=== PATIENT | male | born 1985 ===

== ENCOUNTER 2019-08-26 08:26 | Inpatient (IN) | payer BC, SELFPAY ==
[2019-08-26] MEDS ORDERED: Zolpidem Tartrate 5 MG TAB PO PRN (08:55)
[2019-08-26] MEDS ORDERED: Oxybutynin 5 MG TAB PO PRN (08:55)
[2019-08-26] MEDS ORDERED: HYDROcodone/Acetaminophen 10/325 mg Tablet PO PRN (08:55)
[2019-08-26] MEDS ORDERED: diphenhydrAMINE 50 MG/ML VIAL IVP PRN (08:55)
[2019-08-26] MEDS ORDERED: Insulin Regular 300 UNITS/3 ML VIAL SC PRN (09:13)
[2019-08-26] MEDS ORDERED: Dextrose 5% in Water 1,000 ML IV PRN (09:13)
[2019-08-26] MEDS ORDERED: Dextrose 50% Abboject 50 ML SYRINGE SLOW IVP PRN (09:13)
[2019-08-26 14:46] VITALS: BMI 43.7
--- NOTE | 2019-08-26 18:39 | PRG ---
DATE OF SERVICE: 08/26/2019 SUBJECTIVE: No issues overnight. The patient reports that his urine is clearing, darkish; over the last 24 hours , it has been cranberry color. He denies fevers, nausea, vomiting, dysuria, suprapubic pain. The left flank pain that he had on admission is completely gone at this point. He is having some right-sided flank discomfort. OBJECTIVE: VITAL SIGNS: Afebrile, vitals stable. Good urine output. GENERAL: In no acute distress, conversant. CHEST: Breathing unlabored, symmetric chest expansion. HEART: Regular rate and rhythm. ABDOMEN: Soft, nontender, and obese. Minimal right-sided flank tenderness mostly over the small incision, which is intact with dressing. No suprapubic tenderness. EXTREMITIES: Without clubbing, cyanosis, or edema. SKIN: Warm and dry. LABORATORY DATA: Creatinine 1.0. ASSESSMENT AND PLAN: 1. Postoperative day #3 failed PCNL due to improperly placed nephroureteral stent, postoperative day #5 left ureteroscopy with laser and stent placement. 2. The patient and I discussed his options at this time and have decided to proceed to the operating room tomorrow for intraoperative percutaneous access on the right side with PCNL to follow. I explained his procedure in detail including the expected postoperative course and the risks including bleeding, infection possibly sepsis, pain, inability to access to clear the stone, collateral damage during access including injury to blood vessels, renal pelvis, intestines, liver, lungs. He does understand that he may require a second-look procedure possibly on Monday. I also intend to remove the left ureteral stent intraoperatively tomorrow. All of his questions were answered and he is in agreement. Job ID: [id number] [facility]
[2019-08-26] MEDS: Sodium Chloride 0.9% 1,000 ML IV SCH (20:24)
[2019-08-26] MEDS: Docusate 100 MG CAP PO SCH (20:28)
[2019-08-27] MEDS: Morphine 4 MG/ML VIAL SLOW IVP PRN ×2 (00:04→16:33)
[2019-08-27] MEDS: Sodium Chloride 0.9% 1,000 ML IV SCH ×3 (00:06→17:58)
[2019-08-27 04:38] LABS: Anion Gap 13 mmol/L (10-20); BUN (Urea Nitrogen) 13 mg/dL (8.9-20.6); Calc. Creatinine Clearance 285 mL/min (70-130); Calcium 9.1 mg/dL (7.8-10.44); Carbon Dioxide 20 mmol/L (22-29); Chloride 111 mmol/L (98-107); Estimated GFR-MDRD Greater than 90; Glucose 97 mg/dL (70-105); Potassium 4.2 mmol/L (3.5-5.1); Sodium 140 mmol/L (136-145)
[2019-08-27 04:40] LABS: #Eosinphils 0.4 thou/uL (0.0-0.7); #Lymphocytes 2.7 thou/uL (1.20-3.40); #Monocytes 0.5 thou/uL (0.11-0.59); #Neutrophils 4.5 thou/uL (1.40-6.50); %Basophils 0.5 % (0.0-1.0); %Eosinophils 4.9 % (0.0-10.0); %Lymphocytes 32.8 % (21.0-51.0); %Monocytes 6.4 % (0.0-10.0); %Neutrophils 55.4 % (42.0-75.0); Hemoglobin 12.1 g/dL (14.0-18.0); Mean Corpuscular HGB CONC 34.9 g/dL (32.0-36.0); Mean Corpuscular Hemoglobin 31.9 pg (27.0-31.0); Mean Corpuscular Volume 91.4 fL (78.0-98.0); Mean Platelet Volume 8.4 fL (7.4-10.4); Platelet Count 280 thou/uL (130-400); RBC Distribution Width 12.4 % (11.5-14.5); Red Blood Cell (RBC) Count 3.81 mill/uL (4.70-6.10); White Blood Cell (WBC) Count 8.1 thou/uL (4.8-10.8)
[2019-08-27] MEDS: Ondansetron PF 4 MG/2 ML Vial IVP PRN (05:10)
[2019-08-27] MEDS ORDERED: Bupivacaine/Epinephrine 0.25% 30 ML VIAL ONE (08:16)
[2019-08-27] MEDS ORDERED: Midazolam HCl 2 mg/2 ml Vial ONE (08:18)
[2019-08-27] MEDS ORDERED: Fentanyl 250 MCG/5 ML VIAL ONE (08:18)
[2019-08-27] MEDS: Docusate 100 MG CAP PO SCH ×2 (08:27→20:03)
[2019-08-27] MEDS ORDERED: Bupivacaine 0.25% HCL 30 ML VIAL ONE (09:06)
[2019-08-27] MEDS ORDERED: Lidocaine 1% (PF) 30 ML VIAL ONE (09:06)
[2019-08-27] MEDS ORDERED: Ioversol 68 % 50 ML VIAL ONE ×3 (09:07→12:25)
[2019-08-27] MEDS ORDERED: Iopamidol 0 ML ONE (09:08)
[2019-08-27] MEDS ORDERED: Ondansetron HCl/PF 4 MG/2 ML Vial IVP PRN (14:31)
[2019-08-27] MEDS ORDERED: Promethazine HCl 25 MG/ML VIAL IM PRN (14:31)
[2019-08-27] MEDS ORDERED: HYDROmorphone 2 MG/ML VIAL SLOW IVP PRN (14:31)
[2019-08-27] MEDS ORDERED: Promethazine HCl 25 MG/ML VIAL SLOW IVP PRN (14:31)
[2019-08-27] MEDS ORDERED: Fentanyl 100 MCG/2 ML VIAL ONE ×2 (14:55→15:35)
[2019-08-27] MEDS ORDERED: Sodium Chloride 0.9% 10 ML ONE (15:38)
[2019-08-27] MEDS ORDERED: Ondansetron PF 4 MG/2 ML Vial ONE (15:46)
[2019-08-27] MEDS ORDERED: Lidocaine 1% PF 5 ML VIAL ONE (15:46)
[2019-08-27] MEDS ORDERED: Glycopyrrolate 0.2 MG/ML 5 ML SYRINGE ONE (15:46)
[2019-08-27] MEDS ORDERED: PROPOFOL 200 MG/20 ML VIAL ONE (15:46)
[2019-08-27] MEDS ORDERED: Dexamethasone 20 MG/5 ML VIAL ONE (15:46)
[2019-08-27] MEDS ORDERED: Rocuronium Bromide 10 MG/ML (10ML VIAL) ONE (15:46)
[2019-08-27] MEDS: Ketorolac Tromethamine 30 MG/ML VIAL IVP PRN (16:33)
--- NOTE | 2019-08-27 16:34 | RAD ---
EXAM: Antegrade right pyelogram and nephroureteral catheter/ureteral guidewire placement PROVIDED CLINICAL HISTORY: Staghorn right renal calculus COMPARISON: CT abdomen on 08/20/2019 obtained [address] [facility]. TECHNIQUE: Risks and complications of the procedure were explained to the patient, and informed consent was obta ined. General endotracheal anesthesia was performed by the anesthesiology department. A retrograde ureteral catheter was placed in the right ureter prior to this procedure. Contrast was injected via t he ureteral catheter to opacify the right renal collecting system. A posterior lower pole renal calyx was accessed with a 22-gauge Chiba needle. A 0.018 inch guidewire was eventually manipulated in to the right ureter. The needle was exchanged over the guidewire for a 6 Thai AccuStick sheath with inner cannula and in ner dilator. The distal portion of the AccuStick sheath was positioned in the proximal right ureter. The guidewire and inner dilator was removed, and contrast injection confirmed placement withi n the ureter. The introducer sheath was exchanged over a 0.035 inch Amplatz guidewire for a double lumen 9 Thai catheter. The double lumen catheter was placed to the level of the proximal ureter. Co ntrast injection confirms placement in the proximal ureter. A second 0.035 inch Amplatz guidewire was then placed. Each Amplatz guidewire was positioned at the level of the right UVJ. The double lumen catheter was removed. A nephrostomy tract dilatation balloon was then placed over th e guidewire, and the remainder of the procedure was performed by Dr. Telles. Please see that operative report for further details. Final provided fluoroscopic images demonstrated nephroureteral catheter in place incompletely imaged or evaluated. IMPRESSION: 1. Large staghorn right renal calculus. 2. Technically successful access of a posterior calyx inferior pole right kidney with placement of a right nephroureteral catheter and guidewires within the distal right ureter.
[2019-08-27] MEDS ORDERED: traMADol HCl 50 MG TAB PO PRN (20:20)
[2019-08-27] MEDS: HYDROmorphone 2 MG TAB PO PRN (21:29)
--- NOTE | 2019-08-28 01:23 | OP ---
DATE OF PROCEDURE: 08/27/2019 PREOPERATIVE DIAGNOSIS: Large right renal stone, bilateral indwelling stents. POSTOPERATIVE DIAGNOSIS: Large right renal stone, bilateral indwelling stents. PROCEDURES PERFORMED: Right percutaneous nephrolithotomy, right antegrade nephrostogram, right nephrostomy tube placement, cystoscopy with bilateral stent removal. ANESTHESIA: General. COMPLICATIONS: None. BLOOD LOSS: 250 mL. DESCRIPTION OF PROCEDURE: The patient was consented for the procedure, taken to the operating room. Anesthesia was established on his stretcher. A time-out was performed showing the correct patient, site, and procedure. We entered it and preoperative antibiotics have been administered. He was then prepped and draped in the supine position on his stretcher. A flexible cystoscope was advanced through the ureter and to the bladder. The left ureteral stent was grasped and brought up to the urethral meatus. The scope was then reinserted and the right stent was grasped and removed as well. The scope was then reinserted one more time and a wire placed in the right ureteral orifice. The scope was then withdrawn using the wire in place and ureteral catheter was passed over the wire. The wire was then removed and a 20-Kiswahili Wall catheter placed alongside the ureteral catheter. 10 mL were instilled in the balloon and it was connected to bag drainage. The patient was then prepped and draped in the prone position on the operative table. Dr. Espinosa from Radiology obtained access into a mid pole calyx. This will be dictated by him separately. Once access was obtained, I passed 2 wires down the ureter leaving one as safety and one for working. The balloon dilator was passed under fluoroscopic guidance over one of the wires until the tip of the balloon was just into the renal pelvis. The balloon was inflated and the access sheath passed over the balloon with the tip just touching the renal pelvis. The balloon was deflated and withdrawn leaving the wire in place. The nephroscope was then inserted and the large stone in the renal pelvis was easily identified. The LithoClast was used both with ultrasound and pneumatic fragmentation to completely clear the stone from the renal pelvis and the lower and mid pole calyces that had extended into. I then identified several small stones in the lower pole, however, was unable to access them with the rigid scope. I then switched to the flexible nephroscope and was able to access the lower pole and irrigated and removed all stones from here. A nephrostogram was then performed through the scope opacifying the collecting system. This allowed me to interrogate the entirety of the collecting system noting no remaining stones. I then removed the access sheath using both wires in place. A Malecot tube with ureteral stent was passed over the wire under fluoroscopic guidance noting the end of the stent portion in good position in the ureter. The Malecot portion was then engaged and connected to bag drainage. This was sutured in place with nylon suture and then the skin incision for access closed with two 3-0 interrupted sutures. The wound was then dressed with 4x4s and tape. At this point, the case was completed and so the patient was awoken from anesthesia, transferred back to his hospital bed, and taken to PACU in stable condition, where he will return to the floor upon recovery. Job ID: [id number]
[2019-08-28] MEDS: traMADol HCl 50 MG TAB PO PRN ×4 (03:15→20:55)
[2019-08-28 06:32] LABS: #Lymphocytes 2.2 thou/uL (1.20-3.40); #Neutrophils 11.1 thou/uL (1.40-6.50); %Basophils 0.1 % (0.0-1.0); %Eosinophils 0.3 % (0.0-10.0); %Lymphocytes 15.1 % (21.0-51.0); %Monocytes 6.9 % (0.0-10.0); %Neutrophils 77.6 % (42.0-75.0); Hemoglobin 10.9 g/dL (14.0-18.0); Mean Corpuscular HGB CONC 33.7 g/dL (32.0-36.0); Mean Corpuscular Hemoglobin 30.9 pg (27.0-31.0); Mean Corpuscular Volume 91.9 fL (78.0-98.0); Mean Platelet Volume 7.8 fL (7.4-10.4); Platelet Count 276 thou/uL (130-400); RBC Distribution Width 12.3 % (11.5-14.5); Red Blood Cell (RBC) Count 3.53 mill/uL (4.70-6.10); White Blood Cell (WBC) Count 14.3 thou/uL (4.8-10.8)
[2019-08-28] MEDS: HYDROmorphone 2 MG TAB PO PRN ×3 (06:40→17:44)
[2019-08-28] MEDS: Sodium Chloride 0.9% 1,000 ML IV SCH ×3 (06:44→20:57)
[2019-08-28 07:03] LABS: Anion Gap 12 mmol/L (10-20); BUN (Urea Nitrogen) 18 mg/dL (8.9-20.6); Calc. Creatinine Clearance 166 mL/min (70-130); Calcium 8.6 mg/dL (7.8-10.44); Carbon Dioxide 21 mmol/L (22-29); Chloride 110 mmol/L (98-107); Estimated GFR-MDRD 58; Glucose 118 mg/dL (70-105); Potassium 4.7 mmol/L (3.5-5.1); Sodium 138 mmol/L (136-145)
[2019-08-28] MEDS: Docusate 100 MG CAP PO SCH ×2 (08:21→20:56)
--- NOTE | 2019-08-28 10:02 | PRG ---
DATE OF SERVICE: 08/28/2019 SUBJECTIVE: No acute events overnight. The patient reports that he has been experiencing pain over the right kidney overnight, anywhere from 6 to 9 out of 10 on the pain scale. He denies difficulty breathing, suprapubic pain, headaches, nausea, vomiting, fevers, or chills. OBJECTIVE: VITAL SIGNS: Afebrile, vitals stable. Good urine output both from the Wall and nephrostomy tube. GENERAL: In no acute distress, the patient appears comfortable, conversant. HEAD: Normocephalic and atraumatic. CHEST: Breathing unlabored, symmetric chest expansion. HEART: Regular rate and rhythm. ABDOMEN: Soft, nontender. Appropriately tender over right flank, no left flank tenderness, no suprapubic tenderness. SKIN: Warm and dry. NEUROLOGIC: Alert and oriented x3. PSYCHIATRIC: Normal mood and affect. LABORATORY DATA: White count 14. Creatinine 1.4. ASSESSMENT AND PLAN: 1. Postoperative day 1, right percutaneous nephrolithotomy. 2. Routine postoperative care: Continue pain control/we will adjust dosing, incentive spirometry, out of bed to chair, regular diet. 3. Diabetes. Continue Accu-Cheks and sliding scale insulin. 4. Wall catheter to be removed this morning, we will evaluate nephrostomy tube and consider removal later today versus tomorrow morning. 5. Discharge anticipate for tomorrow. Job ID: [id number]
[2019-08-29] MEDS: HYDROmorphone 2 MG TAB PO PRN (01:20)
[2019-08-29] MEDS: Sodium Chloride 0.9% 1,000 ML IV SCH ×2 (05:17→13:17)
[2019-08-29] MEDS: traMADol HCl 50 MG TAB PO PRN (05:48)
[2019-08-29] MEDS ORDERED: Cepastat Lozenges 1 LOZ PO PRN (08:48)
[2019-08-29] MEDS: Ondansetron PF 4 MG/2 ML Vial IVP PRN (08:52)
[2019-08-29] MEDS: Ketorolac Tromethamine 30 MG/ML VIAL IVP PRN (08:53)
[2019-08-29] MEDS: Docusate 100 MG CAP PO SCH ×2 (08:59→21:39)
--- NOTE | 2019-08-29 09:05 | PRG ---
DATE OF SERVICE: 08/29/2019 SUBJECTIVE: No issues overnight. The patient tells me he has improved about 50% from yesterday, but still reports pain up to about 7 typically. He denies nausea, vomiting, fevers, chills, shortness of breath, or chest pains. OBJECTIVE: VITAL SIGNS: Afebrile, vitals stable. Good urine output, light pink to clear. GENERAL: The patient appears to be resting comfortably in bed, conversant. HEAD: Normocephalic and atraumatic. CHEST: Breathing unlabored, symmetric chest expansion. HEART: Regular rate and rhythm. ABDOMEN: Soft, nontender, and nondistended. : No left flank tenderness. Upper right flank tenderness, although improved from yesterday. No suprapubic tenderness. EXTREMITIES: Without clubbing, cyanosis, or edema. SKIN: Warm and dry. NEUROLOGIC: Alert and oriented x3. ASSESSMENT AND PLAN: 1. Postoperative day 2, right percutaneous nephrolithotomy. 2. His nephrostomy tube was clamped yesterday around 1 o'clock and removed around 6 o'clock without issue. He did have some leakage over the first hour, but has not had any leakage from the nephrostomy site since. 3. Continue pain control, out of bed, ambulate, and incentive spirometry. 4. Diabetes - continue sliding scale insulin with Accu-Cheks. 5. Holding discharge until tomorrow due to transportation. Job ID: [id number]
[2019-08-30] MEDS: Docusate 100 MG CAP PO SCH (08:28)
[2019-08-30] MEDS: traMADol HCl 50 MG TAB PO PRN ×2 (08:30→17:17)
[2019-08-30 16:03] VITALS: BP 108/75; TEMP 99.7
--- NOTE | 2019-08-30 17:24 | DIS ---
DATE OF ADMISSION: 08/26/2019 DATE OF DISCHARGE: 08/30/2019 CHIEF COMPLAINT: Flank pain. FINAL DIAGNOSES: Left ureteral stone, right staghorn calculus, diabetes, acute kidney injury, and hydronephrosis. HOSPITAL COURSE: The patient was transferred from [facility] on August 26. He was taken the following day to the operating room for right subcutaneous nephrolithotomy. There were no surgical complications with a right nephrostomy tube with ureteral stent. This was removed on postop day 2. He was stable for discharge home on postop day 3, however, unable to do so due to lack of transportation. On August 30, was able to discharge home. That day, he was walking around the [place], tolerating oral take, and having only minimal discomfort from the percutaneous access site. DISCHARGE PHYSICAL EXAMINATION: VITAL SIGNS: Afebrile, vitals stable. Good urine output, light pink urine. GENERAL: No acute distress, conversant. HEENT: Head normocephalic and atraumatic. CHEST: Breathing unlabored, symmetric chest expansion. ABDOMEN: Soft, nondistended, nontender, and obese. : Right flank is appropriately tender, however, improved from yesterday. SKIN: Warm and dry. NEURO: Alert and oriented x3. PSYCHIATRIC: Normal mood and affect. DISCHARGE MEDICATIONS: 1. Levaquin. 2. Oxybutynin. 3. Tamsulosin. 4. [place]. 5. Ibuprofen. CONDITION AT DISCHARGE: Stable. PLAN: Follow up in 2 to 3 months with a renal ultrasound. Job ID: [id number]
[2019-08-31 11:09] LABS: Color Orange (.); Stone Weight 2056.6 mg (.); Uric Acid 100 % (.)
[2019-09-02 08:09] LABS: CA Oxalate Monohydrate 10 % (.); Color Orange (.); Comment Note: (.); Stone Weight 8485.1 mg (.); Uric Acid 88 % (.)
== END 2019-08-30 18:20 | disposition home or self-care (01) | DRG 660 ==
LOC: SURG A 13:41
PROVIDERS: ADMIT Urology; ATTEND Urology
PROC: 0TC03ZZ Extirpation of Matter from Right Kidney, Percutaneous Approach (ICD-10-PCS; principal; 2019-08-28)
PROC: BT0 Imaging, Urinary System, Plain Radiography (ICD-10-PCS; 2019-08-28)
PROC: 0T9330Z Drainage of Right Kidney Pelvis with Drainage Device, Percutaneous Approach (ICD-10-PCS; 2019-08-28)
PROC: 0TP98DZ Removal of Intraluminal Device from Ureter, Via Natural or Artificial Opening Endoscopic (ICD-10-PCS; 2019-08-28)
DX: N13.2 Hydronephrosis with renal and ureteral calculous obstruction (principal); Z68.41 Body mass index [BMI] 40.0-44.9, adult; N17.9 Acute kidney failure, unspecified; I10 Essential (primary) hypertension; J45.909 Unspecified asthma, uncomplicated; E11.9 Type 2 diabetes mellitus without complications; E66.01 Morbid (severe) obesity due to excess calories; Z88.0 Allergy status to penicillin; Z88.8 Allergy status to other drugs, medicaments and biological substances; Z88.5 Allergy status to narcotic agent
CPT/HCPCS: 36415; 36416; 50430; 50437; 74425; 74485; 76000; 80048; 82365; 85025; 88300; C1729; C1758; C1769; J0131; J1100; J1200; J1815; J1885; J2001; J2250; J2270; J2405; J2704; J3010; Q9967; S0020